=== PATIENT | male | born 1940 | race Caucasian/White ===

== ENCOUNTER → 2017-06-21 | Outpatient (CLI) | payer OTHER ==
[~2017-06-21] VITALS: Ht 177.8 cm; Wt 93.4 kg
[~2017-06-21] MED LIST: ASPIR 8181 MG PO; ASTRAGALUS PO; BOSWELLIA SERRAT1 GM PO; CALCIUM MAGNES1 EAC2 PO; CINNAMON500 MG PO; CO Q-10100 M1 PO; COZAAR100 MG PO; DAILY MULTIPLE1 EACH PO; FLAX SEED OIL1 EACH PO; GARLIC PO; GINKGO BILOBA60 M1 PO; GRAPE SEED50 MG PO; KELP-LECITHIN-1 EACH PO; L-ARGININE500 MG PO; LIPITOR 20 MG T20 M1 PO; NORVASC2.5 MG PO; OMEPRAZOLE 20 M20 M1 PO; RESVERATROL100 MG PO; TURMERIC 500 M1 EACH PO; VIT E PO; [UNRECOGNIZED DRUG - OTHER] PO
--- NOTE | ~2017-06-21 | P ---
[facility] [place] [address] PROCEDURE REPORT Name: MARIPOSA LAND Room #: REG Evert ZoraShahnaz.#: [id number] Admission: 06/21/17 Attend Phys: Tae Henderson MD Discharge: Date of : 44 Report #: [id number] THIS REPORT FOR: //name// CC: Tae Ferguson MD BRIEF HISTORY: The patient is a 77-year-old male with a history of a flat proximal ascending colon polyp removed in 2009. He was advised to return in 1 year because of the piecemeal removal, but did not do so. Recently, his 50-year-old son with colon cancer. PREOPERATIVE DIAGNOSIS: High risk screening colonoscopy due to history of colon polyps and family history of colon cancer. POSTOPERATIVE DIAGNOSES: 1. Flat 2.5 cm polyp, proximal ascending colon. 2. Moderate to severe diverticulosis coli, sigmoid colon. 3. Internal hemorrhoids. MEDICATIONS: Deep sedation with propofol for Anesthesia. SPECIMEN: Multiple fragments of polyp and proximal ascending colon. ESTIMATED BLOOD LOSS: 3 mL. PROCEDURE: Colonoscopy to cecum and terminal ileum with piecemeal removal using a snare and biopsy forceps, saline elevation of polyp and injection of Maria Esther ink for tattoo. FINDINGS: Prior to propofol sedation, procedure of colonoscopy discussed with the patient as well as potential risks and its complications. He indicates he understands and desires to proceed. DESCRIPTION OF PROCEDURE: With the patient in left lateral decubitus position, digital examination was completed which revealed no abnormalities. Subsequently, the [employer] video colonoscope was introduced rectally and advanced under direct vision to the cecum. Done with minimal difficulty. Cecum was identified by the ileocecal valve and the appendiceal orifice. I was able to visualize the distal segment of terminal ileum, which was inspected and noted to be unremarkable. At that point, the scope was slowly withdrawn and careful circumferential views obtained including retroflexion of the scope. As we withdrew the scope, he has noted have a flat nodular polyp in the proximal ascending colon. It was sessile on the first fold above the cecum. I could not tell if this was a site of previous polypectomy or a different site. It was very flat and nodular. Therefore, it was elevated with saline. We then started to move in a piecemeal fashion with a hot snare. The polyp was 2-2.5 [address] [address] PROCEDURE REPORT Name: MARIPOSA LAND Shahnaz Room #: REG TANNER Timmons#: [id number] Admission: 06/21/17 Attend Phys: Tae Henderson MD Discharge: Date of : 44 Report #: [id number] length and probably 1 cm in width. We were able to remove about two-thirds of the polyp, but some parts, especially the central areas were too flat to remove with the snare. We used large biopsy forceps and removed multiple small fragments. We then treated the site with argon plasma coagulation with good effect. Tattoo kimberly was placed on the lateral aspects of the polypectomy site. At that point, the scope was withdrawn and careful circumferential views were obtained. Examination of the remainder of the colon revealed a normal appearing mucosa. No abnormalities were noted until we reached the sigmoid colon, at which point he was noted to have moderately severe diverticular disease without endoscopic evidence of diverticulitis. The scope was then withdrawn into the rectum, and upon retroflexion, small hemorrhoids were seen. Scope was withdrawn. The patient tolerated the procedure well. CONDITION OF THE PATIENT UPON DISCHARGE: Following procedure, the patient is drowsy, aroused, conversant and will be discharged home when fully ambulatory. INSTRUCTIONS TO THE PATIENT AND FAMILY AT THE TIME OF DISCHARGE: The patient with a flat polyp as noted above. We will follow up on the pathology. Due to the piecemeal removal and difficulty with polypectomy, we will have him return in 6 months for followup colonoscopy. He will otherwise return to care of Dr. Filipe Ferguson and to return to see me as needed. Last colonoscopy was in 2009. Withdrawal time from the cecum was 51 minutes and 30 seconds. <ELECTRONICALLY SIGNED> By: Tae Henderson MD 06/22/17 0919 1159 1252 Tae Henderson MD /nt
--- NOTE | ~2017-06-21 | S ---
[facility] [place] [address] SURGICAL PATH RPT PROCEDURE Name: MARIPOSA WALKER Room #: REG JAVY M.Shahnaz.#: [id number] Admission: 06/21/17 Date of : 44 Discharge: Report #: [id number] Path Case #: [id number] PATHOLOGY REPORT COLLECTION DATE: 06/21/2017 RECEIVED DATE: 06/21/2017 SUBMITTING PHYS: Dr. Tae Henderson OTHER PHYS: Dr. 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 COMMENT: Co-review: Dr. Celeste Almanza. (IUV:pit; 06/22/2017) PATHOLOGIST: Yue Newman M.D. REPORT ELECTRONICALLY SIGNED BY: Yue Newman M.D. DATE/TIME: 06/22/2017 13:50 * * * * * * * * * * * * GROSS PATHOLOGY: Received in formalin labeled "Mariposa Walker, polyp at proximal ascending colon," are multiple (more than 10) segments of bay soft tissue measuring 2.7 x 1.2 x 0.2 cm in aggregate dimensions and ranging from 0.1 to 0.4 cm in maximum dimension. The specimen is submitted entirely in cassette A1. (TSD; 06/21/2017) CLINICAL HISTORY: Pre-OP DX: Hx of polyps Post-OP DX: Colon polyp INITIAL CPT CODE(S): A; 30059 Professional services performed by [facility] at [facility] [address], [place] [address] [facility] [address] [place] [address] SURGICAL PATH RPT PROCEDURE Name: MARIPOSA WALKER Room #: REG TANNER Quintero.#: [id number] Admission: 06/21/17 Date of : 44 Discharge: Report #: [id number] Path Case #: [id number] [facility] at [address] [place] [address], [place] [address]. [facility] [address] [place] [address] PHONE: [phone] DIRECTOR: Maury Smith M.D. * * * END OF REPORT * * *
== END | disposition home or self-care (01) ==
LOC: GI 08:31
DX: Z09 Encounter for follow-up examination after completed treatment for conditions other than malignant neoplasm (principal); D12.2 Benign neoplasm of ascending colon; K57.30 Diverticulosis of large intestine without perforation or abscess without bleeding; K64.8 Other hemorrhoids; I10 Essential (primary) hypertension; E78.00 Pure hypercholesterolemia, unspecified; K21.9 Gastro-esophageal reflux disease without esophagitis; Z98.890 Other specified postprocedural states; Z80.0 Family history of malignant neoplasm of digestive organs; Z79.82 Long term (current) use of aspirin; Z79.899 Other long term (current) drug therapy; Z88.2 Allergy status to sulfonamides; Z86.010 Personal history of colon polyps
CPT/HCPCS: 62110; 62900

== ENCOUNTER → 2017-10-18 | Outpatient (CLI) | payer OTHER ==
[~2017-10-18] VITALS: Ht 177.8 cm; Wt 97.5 kg
--- NOTE | ~2017-10-18 | P ---
[facility] [place] [address] PROCEDURE REPORT Name: MARIPOSA LAND Room #: [id number] Admission: 10/18/17 Attend Phys: Tae Henderson MD Discharge: Date of : 44 Report #: [id number] THIS REPORT FOR: //name// CC: Tae Ferguson MD OUTPATIENT COLONOSCOPY REPORT BRIEF HISTORY: The patient is a 77-year-old male who was seen a number of months ago due to history of colon cancer and family history of colon cancer, son who at age 51. Several months ago, he had a flat polyp in the proximal ascending colon that was removed with difficulty. He presents today for followup examination and further treatment if needed. PREOPERATIVE DIAGNOSIS: History of flat tubulovillous adenoma with focal high-grade dysplasia to ensure complete removal. POSTOPERATIVE DIAGNOSES: 1. Deformity of ascending colon consistent with previous polypectomy, healed. 2. Moderate sigmoid diverticulosis coli. MEDICATIONS: Deep sedation with propofol per anesthesia. SPECIMEN: Biopsies of old polypectomy site. ESTIMATED BLOOD LOSS: 3 mL. PROCEDURE: Colonoscopy to cecum and terminal ileum with biopsy. FINDINGS: Prior to propofol sedation, procedure of colonoscopy discussed with the patient as well as potential risks and its complications. He indicates he understands and desires to proceed. DESCRIPTION OF PROCEDURE: With the patient in the left lateral decubitus position, digital examination was completed, which revealed no abnormalities. Subsequently, the Olympus video colonoscope was introduced into the rectum, advanced under direct vision to the cecum. It was done with minimal difficulty. The cecum was reached and identified by the ileocecal valve and the appendiceal orifice. I was able to advance the scope into the distal segment of the terminal ileum, which was inspected and noted to be unremarkable. At that point, scope was withdrawn and careful circumferential views were obtained including retroflexing the scope in the ascending colon. Upon slow withdrawal of the scope, the prep was noted to be good. The mucosa was within normal limits, normal vascular pattern and normal light reflex. As we withdrew the scope, the mucosa was inspected and noted to be normal. In the very proximal ascending colon, tattoos were seen at the previous polypectomy site. There was [facility] [address] [place] [address] PROCEDURE REPORT Name: MARIPOSA LAND Room #: REG [facility].#: [id number] Admission: 10/18/17 Attend Phys: Tae Henderson MD Discharge: Date of : 44 Report #: [id number] evidence of deformity and scarring consistent with previous polypectomy. This polypectomy site was on a fold. We flattened the fold and could see the proximal side. The mucosa was slightly nodular, but I believe this is deformity secondary to scarring rather than true neoplastic disease. In addition, the area was examined with narrow band imaging and no additional abnormalities were noted. Multiple biopsies obtained of the polypectomy site to ensure complete removal. At that point, the scope was withdrawn and careful circumferential views confirmed the above findings. As we withdrew the scope, the mucosa throughout the remaining colon was normal. No polyps were seen. No inflammatory changes were seen. As we withdrew the scope into the sigmoid colon, he was noted to have moderately severe diverticular disease without endoscopic evidence of diverticulitis. Scope was withdrawn into the rectum and upon retroflexion, no abnormalities were seen. The scope was withdrawn. The patient tolerated the procedure well. CONDITION OF THE PATIENT UPON DISCHARGE: Following the procedure, the patient was drowsy, arousable and conversant and will be discharged to home when fully ambulatory. INSTRUCTIONS TO THE PATIENT AND FAMILY AT THE TIME OF DISCHARGE: I do not see evidence of residual polyp at the polypectomy site. We will follow up on path. Obviously, if there is evidence of neoplastic tissue, may need to return to further treat this area, although it was not obvious today. If there is no evidence of neoplastic tissue on the biopsy today, I would have him return in about 2 years for followup colon exam, especially since dysplasia was present. Withdrawal time from the cecum was 21 minutes 57 seconds. <ELECTRONICALLY SIGNED> By: Tae Henderson MD 10/18/17 1155 1112 1148 Tae Henderson MD /nt
== END | disposition home or self-care (01) ==
LOC: GI 08:42
DX: Z09 Encounter for follow-up examination after completed treatment for conditions other than malignant neoplasm (principal); K52.9 Noninfective gastroenteritis and colitis, unspecified; K57.30 Diverticulosis of large intestine without perforation or abscess without bleeding; I10 Essential (primary) hypertension; E78.00 Pure hypercholesterolemia, unspecified; K21.9 Gastro-esophageal reflux disease without esophagitis; Z98.890 Other specified postprocedural states; Z88.2 Allergy status to sulfonamides; Z80.0 Family history of malignant neoplasm of digestive organs; Z79.82 Long term (current) use of aspirin; Z79.899 Other long term (current) drug therapy
CPT/HCPCS: 62110; 62900

== ENCOUNTER → 2019-06-16 | Outpatient (CLI) | payer OTHER | LOC: SJCVCIMAG 13:01 | DX: I10 Essential (primary) hypertension (principal); E78.00 Pure hypercholesterolemia, unspecified; E78.5 Hyperlipidemia, unspecified ==

== ENCOUNTER → 2020-03-18 | Outpatient (CLI) | payer OTHER | LOC: SJCVC 13:08 | PROVIDERS: ATTEND Internal Medicine Cardiovascular Disease | DX: R94.31 Abnormal electrocardiogram [ECG] [EKG] (principal); I10 Essential (primary) hypertension; E78.00 Pure hypercholesterolemia, unspecified ==